=== PATIENT | male | born 1975 | race Caucasian/White ===

== ENCOUNTER 2018-06-14 12:36 | Emergency (ER) | payer SELFPAY ==
[~2018-06-14] VITALS: Ht 182.9 cm; Wt 83.5 kg
[~2018-06-14 12:36] MED LIST: DIAZ5 PO; GABA600 PO; Neurontin600 MG PO; OLAN5 PO; ONDA4ODT SL; OXYACE5T PO; Prozac20 MG PO; Prozac40 MG PO; RANI150 PO; SENN187; Senna Laxative8.6 MG PO; Zantac150 MG PO; Zofran Odt8 MG SL
[2018-06-14] MEDS ORDERED: ESCI20 PO (12:48)
[2018-06-14] MEDS ORDERED: ACID REDUCER 1150 MG PO (12:49)
[2018-06-14] MEDS ORDERED: ONDA4 PO (12:49)
[2018-06-14] MEDS ORDERED: METCAR500 PO (12:49)
[2018-06-14] MEDS ORDERED: Dazidox10 MG PO (12:49)
== END 2018-06-14 15:00 | disposition home or self-care (01) ==
LOC: ER 12:36
DX: M62.830 Muscle spasm of back (principal); F41.9 Anxiety disorder, unspecified; F32.9 Major depressive disorder, single episode, unspecified; F17.210 Nicotine dependence, cigarettes, uncomplicated; Z79.899 Other long term (current) drug therapy
CPT/HCPCS: 72070; 99283-25

== ENCOUNTER 2018-10-14 17:29 | Emergency (ER) | payer OTHER ==
[~2018-10-14] VITALS: Ht 182.9 cm; Wt 82.5 kg
[~2018-10-14 17:29] MED LIST changes: +ACID REDUCER 1150 MG PO; +Dazidox10 MG PO; +ESCI20 PO; +METCAR500 PO; +ONDA4 PO
[2018-10-14 18:37] LABS: Source, Urine Clean Catch
[2018-10-14 18:43] LABS: Bilirubin, Urine Neg (Neg); Blood, Urine Neg (Neg); Glucose Qualitative, Urine Neg (Neg); Ketones, Urine Neg (Neg); Leukocyte Esterase, Urine Neg (Neg); Nitrite, Urine Neg (Neg); Protein, Urine Neg (Neg); Urobilinogen, Urine NORM (Normal); pH, Urine 6.5 (5.0-8.0)
[2018-10-14 18:52] LABS: Appearance, Urine Clear (Clear); Color, Urine Yellow (P-Yellow)
[2018-10-16 03:11] LABS: CHLAMYDIA TRACHOMATIS, NAA Negative (Negative); NEISSERIA GONORRHOEAE, NAA Negative (Negative)
== END 2018-10-14 19:23 | disposition home or self-care (01) ==
LOC: ER 17:29
PROVIDERS: Physician Assistant
DX: R35.0 Frequency of micturition (principal); R10.30 Lower abdominal pain, unspecified; R39.15 Urgency of urination; R39.11 Hesitancy of micturition; F41.9 Anxiety disorder, unspecified; F32.9 Major depressive disorder, single episode, unspecified; F17.210 Nicotine dependence, cigarettes, uncomplicated; Z79.899 Other long term (current) drug therapy
CPT/HCPCS: 81003; 87491; 87591; 96372; 99283-25; J0696

== ENCOUNTER 2019-07-02 15:38 | Emergency (ER) | payer OTHER ==
[~2019-07-02] VITALS: Ht 172.7 cm; Wt 84.8 kg
[2019-07-02 16:15] LABS: Calcium, Ionized (POC) 1.11 mmol/L (1.10-1.46); Chloride (POC) 105 mmol/L (98-108); Creatinine (POC) 1.1 mg/dL (0.8-1.3); Glucose (ISTAT POC) 110 mg/dL (70-99); Hemoglobin (POC) 12.9 g/dL (13.5-17.5); Potassium (POC) 3.7 mmol/L (3.5-5.5); Sodium (POC) 140 mmol/L (135-148); Total CO2 (POC) 23 mmol/L (21-32)
[2019-07-02] MEDS ORDERED: COMPAZINE10 MG PO (16:44)
[2019-07-02] MEDS ORDERED: OXYC1TAB11 PO (16:51)
[2019-07-02] MEDS ORDERED: OMEPRAZOLE20 MG PO (16:53)
== END 2019-07-02 17:06 | disposition home or self-care (01) ==
LOC: ER 15:38
PROVIDERS: Internal Medicine
DX: R11.2 Nausea with vomiting, unspecified (principal); Z79.899 Other long term (current) drug therapy; F41.9 Anxiety disorder, unspecified; F32.9 Major depressive disorder, single episode, unspecified; F17.210 Nicotine dependence, cigarettes, uncomplicated
CPT/HCPCS: 36415; 80047; 85014; 96361; 96374; 96375; 99283-25; J0780; J1170; J1200; J7120

== ENCOUNTER 2019-07-09 19:24 | Emergency (ER) | payer OTHER ==
[~2019-07-09] VITALS: Ht 182.9 cm; Wt 85.3 kg
[~2019-07-09 19:24] MED LIST changes: +COMPAZINE10 MG PO; +OMEPRAZOLE20 MG PO; +OXYC1TAB11 PO
[2019-07-09 19:58] LABS: BASOPHILS ABSOLUTE AUTO 0.04 K/mm3 (0.00-0.23); BASOPHILS PERCENT AUTO 1 % (0-2); EOSINOPHILS ABSOLUTE AUTO 0.14 K/mm3 (0.00-0.68); EOSINOPHILS PERCENT AUTO 2 % (0-6); Hematocrit 42.8 % (37.0-53.0); Hemoglobin 14.8 g/dL (13.5-17.5); IMMATURE GRAN ABSOLUTE AUTO 0.02 K/mm3 (0.00-0.10); IMMATURE GRAN PERCENT AUTO 0 % (0-1); LYMPHOCYTES ABSOLUTE AUTO 1.42 K/mm3 (0.84-5.20); LYMPHOCYTES PERCENT AUTO 16 % (21-46); MONOCYTES ABSOLUTE AUTO 0.41 K/mm3 (0.16-1.47); MONOCYTES PERCENT AUTO 5 % (4-13); Mean Corpuscular HGB Conc 34.6 g/dL (31.5-36.5); Mean Corpuscular Volume 92 fL (80-100); NEUTROPHILS ABSOLUTE AUTO 6.85 K/mm3 (1.96-9.15); NEUTROPHILS PERCENT AUTO 77 % (41-73); RDW Coefficient Variation 12.9 % (11.7-14.2); RDW Standard Deviation 43.8 fL (35.1-46.3); Red Blood Cell Count 4.63 M/mm3 (4.30-5.90); White Blood Cell Count 8.88 K/mm3 (4.00-11.30)
[2019-07-09 20:00] LABS: Mean Platelet Volume 11.4 fL (9.1-12.4); Platelet Count 204 K/mm3 (150-400)
[2019-07-09 20:10] LABS: Alanine Aminotransfer (ALT/SGP 28 U/L (12-78); Albumin, Blood 4.3 g/dL (3.4-5.0); Albumin/Globulin Ratio 1.1 (0.8-1.8); Alk Phos 119 U/L (50-136); Anion Gap 8 mmol/L (6-16); Aspartate Aminotrans (AST/SGOT 20 U/L (12-37); Bilirubin, Total 0.8 mg/dL (0.1-1.0); Blood Urea Nitrogen 13 mg/dL (8-24); Bun/Creatinine Ratio 12.3 (12.0-20.0); CO2, Blood 28 mmol/L (21-32); Calcium, Blood 9.3 mg/dL (8.5-10.1); Chloride, Blood 102 mmol/L (98-108); Creatinine, Blood 1.06 mg/dL (0.60-1.20); Globulin, Blood 3.9 g/dL (2.2-4.0); Glomerular Filtration Rate >60 (60-); Glucose, Blood 86 mg/dL (70-99); Potassium, Blood 3.9 mmol/L (3.5-5.5); Sodium, Blood 138 mmol/L (136-145); Total Protein, Blood 8.2 g/dL (6.4-8.2)
[2019-07-09] MEDS ORDERED: AZIT500 PO (22:32)
== END 2019-07-09 22:48 | disposition home or self-care (01) ==
LOC: ER 19:24
PROVIDERS: Physician Assistant
DX: K92.1 Melena (principal); Z79.899 Other long term (current) drug therapy; F32.9 Major depressive disorder, single episode, unspecified; F41.9 Anxiety disorder, unspecified; F17.210 Nicotine dependence, cigarettes, uncomplicated
CPT/HCPCS: 36415; 80053; 85025; 99283

== ENCOUNTER 2019-08-04 06:43 | Emergency (ER) | payer OTHER ==
[~2019-08-04] VITALS: Ht 182.9 cm; Wt 84.8 kg
[~2019-08-04 06:43] MED LIST changes: +AZIT500 PO; +Bentyl20 MG PO; +PHENERGAN25 MG PR
[2019-08-04 07:37] LABS: BASOPHILS ABSOLUTE AUTO 0.04 K/mm3 (0.00-0.23); BASOPHILS PERCENT AUTO 0 % (0-2); EOSINOPHILS ABSOLUTE AUTO 0.02 K/mm3 (0.00-0.68); EOSINOPHILS PERCENT AUTO 0 % (0-6); Hematocrit 40.7 % (37.0-53.0); Hemoglobin 13.7 g/dL (13.5-17.5); IMMATURE GRAN ABSOLUTE AUTO 0.02 K/mm3 (0.00-0.10); IMMATURE GRAN PERCENT AUTO 0 % (0-1); LYMPHOCYTES ABSOLUTE AUTO 1.41 K/mm3 (0.84-5.20); LYMPHOCYTES PERCENT AUTO 14 % (21-46); MONOCYTES ABSOLUTE AUTO 0.54 K/mm3 (0.16-1.47); MONOCYTES PERCENT AUTO 5 % (4-13); Mean Corpuscular HGB 31.6 pg (26.0-34.0); Mean Corpuscular HGB Conc 33.7 g/dL (31.5-36.5); Mean Corpuscular Volume 94 fL (80-100); Mean Platelet Volume 12.2 fL (9.1-12.4); NEUTROPHILS ABSOLUTE AUTO 7.99 K/mm3 (1.96-9.15); NEUTROPHILS PERCENT AUTO 80 % (41-73); Platelet Count 179 K/mm3 (150-400); RDW Coefficient Variation 12.4 % (11.7-14.2); RDW Standard Deviation 43.3 fL (35.1-46.3); Red Blood Cell Count 4.33 M/mm3 (4.30-5.90); White Blood Cell Count 10.02 K/mm3 (4.00-11.30)
[2019-08-04 07:56] LABS: Alanine Aminotransfer (ALT/SGP 30 U/L (12-78); Albumin, Blood 4.1 g/dL (3.4-5.0); Albumin/Globulin Ratio 1.2 (0.8-1.8); Alk Phos 91 U/L (50-136); Anion Gap 10 mmol/L (6-16); Aspartate Aminotrans (AST/SGOT 24 U/L (12-37); Bilirubin, Total 0.9 mg/dL (0.1-1.0); Blood Urea Nitrogen 9 mg/dL (8-24); CO2, Blood 25 mmol/L (21-32); Calcium, Blood 9.3 mg/dL (8.5-10.1); Chloride, Blood 107 mmol/L (98-108); Globulin, Blood 3.4 g/dL (2.2-4.0); Glomerular Filtration Rate >60 (60-); Glucose, Blood 112 mg/dL (70-99); Potassium, Blood 3.8 mmol/L (3.5-5.5); Sodium, Blood 142 mmol/L (136-145); Total Protein, Blood 7.5 g/dL (6.4-8.2)
[2019-08-04] MEDS ORDERED: PROM25 PO (09:01)
== END 2019-08-04 09:43 | disposition home or self-care (01) ==
LOC: ER 06:43
PROVIDERS: Emergency Medicine
DX: R11.2 Nausea with vomiting, unspecified (principal); R10.13 Epigastric pain; F41.9 Anxiety disorder, unspecified; F32.9 Major depressive disorder, single episode, unspecified; F17.210 Nicotine dependence, cigarettes, uncomplicated; Z79.899 Other long term (current) drug therapy
CPT/HCPCS: 76705; 80053; 83690; 85025; 96361; 96374; 96375; 99284-25; J1200; J1630; J2550; J7120

== ENCOUNTER 2020-03-15 14:42 | Emergency (ER) | payer OTHER ==
[~2020-03-15] VITALS: Ht 182.9 cm; Wt 82.5 kg
[~2020-03-15 14:42] MED LIST changes: +PROM25 PO
== END 2020-03-15 15:55 | disposition left against medical advice (07) ==
LOC: ER 14:42
DX: Z53.21 Procedure and treatment not carried out due to patient leaving prior to being seen by health care provider (principal)
CPT/HCPCS: 99282

== ENCOUNTER 2020-05-14 09:34 | Emergency (ER) | payer OTHER ==
[~2020-05-14 09:34] MED LIST changes: +ONDA4ODT MM
== END 2020-05-14 11:25 | disposition left against medical advice (07) ==
LOC: ER 09:34
DX: Z53.21 Procedure and treatment not carried out due to patient leaving prior to being seen by health care provider (principal)

== ENCOUNTER 2020-07-17 10:53 | Emergency (ER) | payer OTHER ==
[~2020-07-17] VITALS: Ht 182.9 cm; Wt 70.3 kg
[2020-07-17 11:59] LABS: BASOPHILS ABSOLUTE AUTO 0.02 K/mm3 (0.00-0.23); BASOPHILS PERCENT AUTO 0 % (0-2); EOSINOPHILS ABSOLUTE AUTO 0.01 K/mm3 (0.00-0.68); EOSINOPHILS PERCENT AUTO 0 % (0-6); Hematocrit 43.1 % (37.0-53.0); Hemoglobin 14.7 g/dL (13.5-17.5); IMMATURE GRAN ABSOLUTE AUTO 0.02 K/mm3 (0.00-0.10); IMMATURE GRAN PERCENT AUTO 0 % (0-1); LYMPHOCYTES ABSOLUTE AUTO 1.04 K/mm3 (0.84-5.20); LYMPHOCYTES PERCENT AUTO 9 % (21-46); MONOCYTES ABSOLUTE AUTO 0.23 K/mm3 (0.16-1.47); MONOCYTES PERCENT AUTO 2 % (4-13); Mean Corpuscular HGB Conc 34.1 g/dL (31.5-36.5); Mean Corpuscular Volume 94 fL (80-100); Mean Platelet Volume 11.8 fL (9.1-12.4); NEUTROPHILS ABSOLUTE AUTO 10.09 K/mm3 (1.96-9.15); NEUTROPHILS PERCENT AUTO 88 % (41-73); Platelet Count 241 K/mm3 (150-400); RDW Coefficient Variation 12.6 % (11.7-14.2); RDW Standard Deviation 43.2 fL (35.1-46.3); White Blood Cell Count 11.41 K/mm3 (4.00-11.30)
[2020-07-17 12:22] LABS: Alanine Aminotransfer (ALT/SGP 23 U/L (12-78); Albumin, Blood 4.6 g/dL (3.4-5.0); Albumin/Globulin Ratio 1.3 (0.8-1.8); Alk Phos 108 U/L (50-136); Anion Gap 5 mmol/L (6-16); Aspartate Aminotrans (AST/SGOT 9 U/L (12-37); Bilirubin, Total 0.7 mg/dL (0.1-1.0); Blood Urea Nitrogen 12 mg/dL (8-24); Bun/Creatinine Ratio 12.2 (12.0-20.0); CO2, Blood 27 mmol/L (21-32); Calcium, Blood 10.1 mg/dL (8.5-10.1); Chloride, Blood 107 mmol/L (98-108); Creatinine, Blood 0.98 mg/dL (0.60-1.20); Globulin, Blood 3.6 g/dL (2.2-4.0); Glomerular Filtration Rate >60 (60-); Glucose, Blood 117 mg/dL (70-99); Potassium, Blood 4.2 mmol/L (3.5-5.5); Sodium, Blood 139 mmol/L (136-145); Total Protein, Blood 8.2 g/dL (6.4-8.2)
[2020-07-17] MEDS ORDERED: METO10 PO (17:21)
== END 2020-07-17 12:10 | disposition left against medical advice (07) ==
LOC: ER 10:53
PROVIDERS: Emergency Medicine
DX: R11.2 Nausea with vomiting, unspecified (principal); Z76.5 Malingerer [conscious simulation]; Z53.21 Procedure and treatment not carried out due to patient leaving prior to being seen by health care provider; F41.9 Anxiety disorder, unspecified; F32.9 Major depressive disorder, single episode, unspecified; Z79.899 Other long term (current) drug therapy
CPT/HCPCS: 36415; 80053; 83690; 85025; 96374; 96375; 99284-25; J1200; J2550; J7030

== ENCOUNTER 2020-07-17 15:00 | Emergency (ER) | payer OTHER ==
[~2020-07-17] VITALS: Ht 182.9 cm; Wt 70.3 kg
[2020-07-17] MEDS ORDERED: METO10 PO (17:21)
== END 2020-07-17 17:55 | disposition home or self-care (01) ==
LOC: ER 15:00
DX: R11.2 Nausea with vomiting, unspecified (principal); F41.9 Anxiety disorder, unspecified; F32.9 Major depressive disorder, single episode, unspecified; F17.210 Nicotine dependence, cigarettes, uncomplicated; Z87.19 Personal history of other diseases of the digestive system; Z79.899 Other long term (current) drug therapy
CPT/HCPCS: 36415; 96374; 96375; 99283-25; J1200; J2405; J2765

== ENCOUNTER 2020-09-11 13:57 | Emergency (ER) | payer OTHER ==
[~2020-09-11] VITALS: Ht 182.9 cm; Wt 72.6 kg
[~2020-09-11 13:57] MED LIST changes: +METO10 PO
[2020-09-11] MEDS ORDERED: PRAV20 (16:57)
[2020-09-11] MEDS ORDERED: OMEP20ER (16:57)
[2020-09-11 17:44] LABS: Influenza A, PCR Negative (NEGATIVE); Influenza B, PCR Negative (NEGATIVE); Resp Syncytial Virus, PCR Negative (NEGATIVE); SARS-Cov-2 (COVID-19) PCR, MMC Negative (NEGATIVE)
== END 2020-09-11 16:54 | disposition left against medical advice (07) ==
LOC: ER 13:57
PROVIDERS: Emergency Medicine
DX: B34.9 Viral infection, unspecified (principal); E78.5 Hyperlipidemia, unspecified; F41.9 Anxiety disorder, unspecified; F32.9 Major depressive disorder, single episode, unspecified; F17.200 Nicotine dependence, unspecified, uncomplicated; Z20.828 Contact with and (suspected) exposure to other viral communicable diseases; Z53.20 Procedure and treatment not carried out because of patient's decision for unspecified reasons; Z79.899 Other long term (current) drug therapy
CPT/HCPCS: 0241U; 71046; 99283-25